=== PATIENT | male | born 1970 | race Caucasian/White ===

== ENCOUNTER 2024-11-15 07:26 | Outpatient (CLI) | payer OTHER | END 2024-11-15 07:32 | disposition home or self-care (01) | LOC: NUCLEAR 07:26 | PROVIDERS: ATTEND Family Medicine | DX: I73.9 Peripheral vascular disease, unspecified (principal); M79.669 Pain in unspecified lower leg; M79.661 Pain in right lower leg ==

== ENCOUNTER 2024-11-15 09:25 | Outpatient (CLI) | payer OTHER | END 2024-11-15 09:29 | disposition home or self-care (01) | LOC: MRI 09:25 | DX: M79.669 Pain in unspecified lower leg (principal); M79.661 Pain in right lower leg; R25.2 Cramp and spasm | CPT/HCPCS: 73718 ==